=== PATIENT | female | born 1995 | race Caucasian/White ===

== ENCOUNTER 2024-09-13 06:38 | Emergency (ER) | payer MEDICAID ==
[~2024-09-13] VITALS: Ht 170.2 cm; Wt 59.0 kg
[2024-09-13 06:54] VITALS: O2SAT 100
[2024-09-13 08:55] LABS: CLARITY URINE CLEAR (CLEAR); COLOR URINE YELLOW (YELLOW); GLUCOSE URINE NEGATIVE (NEGATIVE); KETONES URINE NEGATIVE (NEGATIVE); LEUKOCYTE ESTERASE URINE NEGATIVE (NEGATIVE); NITRITE URINE NEGATIVE (NEGATIVE); OCCULT BLOOD URINE NEGATIVE (NEGATIVE); PROTEIN URINE NEGATIVE (NEGATIVE); UROBILINOGEN URINE 0.2 E.U./dL (0.2-1.0)
[2024-09-13 09:47] LABS: BASOPHILS % 0.2 % (0.0-2.0); EOSINOPHILS % 0.4 % (0.0-5.0); HEMATOCRIT. 44.3 % (36.0-48.0); HEMOGLOBIN. 14.7 g/dL (12.0-16.0); LYMPHOCYTES % 18.5 % (20.0-50.0); MEAN CORPUSCULAR HEMOGLOBIN 29.7 pg (28.0-32.0); MEAN CORPUSCULAR HGB CONC 33.2 g/dL (31.0-37.0); MEAN CORPUSCULAR VOLUME 89.2 fL (81.0-99.0); NEUTROPHILS % 71.9 % (40.0-76.0); PLATELET 218 x1000/uL (130-400); RED BLOOD CELL COUNT 4.96 mill/uL (4.2-5.4); RED CELL DISTRIBUTION WIDTH 13.7 % (11.6-14.6); WHITE BLOOD COUNT 6.4 x1000/uL (4.5-11.0)
[2024-09-13 09:48] LABS: CHLORIDE 108 mEq/L (98-107); POTASSIUM 3.9 mEq/L (3.5-5.1); SODIUM 140 mEq/L (136-145)
[2024-09-13 09:49] LABS: CALCIUM 9.8 mg/dL (8.7-10.4); CARBON DIOXIDE 28 mEq/L (21-32)
[2024-09-13 09:54] LABS: CREATININE 0.9 mg/dL (0.6-1.0); GLUCOSE 102 mg/dL (70-105); PROTHROMBIN TIME 11.6 sec (9.6-11.0); UREA NITROGEN BLOOD 10 mg/dL (9-23)
[2024-09-13 09:56] LABS: ALANINE AMINOTRANSFERASE 8 IU/L (10-49); ALBUMIN 4.7 g/dL (3.2-4.8); ASPARTATE AMINOTRANSFERASE 16 IU/L (<34); BILIRUBIN DIRECT 0.1 mg/dL (<=3.0); PHOSPHORUS 2.8 mg/dL (2.5-4.9)
[2024-09-13 09:57] LABS: BILIRUBIN TOTAL 0.5 mg/dL (0.1-1.0); PROTEIN TOTAL 7.9 g/dL (6.0-8.3)
[2024-09-13 09:58] LABS: T4 FREE 1.15 ng/dL (0.89-1.76); THYROID STIMULATING HORMONE 2.18 uIU/mL (0.55-4.78)
[2024-09-13 10:34] VITALS: BP 116/74; PULSE 74; RESP 16; TEMP 37.05852; O2SAT 99
== END 2024-09-13 10:35 | disposition home or self-care (01) ==
LOC: ER 06:38
DX: R00.2 Palpitations (principal)
CPT/HCPCS: 36415; 71045; 80048; 80076; 81003; 83735; 84100; 84439; 84443; 85025; 93005; 99285

== ENCOUNTER 2024-09-18 20:47 | Emergency (ER) | payer MEDICAID ==
[~2024-09-18] VITALS: Ht 167.6 cm; Wt 61.0 kg
[2024-09-18 21:07] VITALS: O2SAT 99
[2024-09-18 21:37] VITALS: BP 124/74; PULSE 81; RESP 20; TEMP 98.2; O2SAT 97
== END 2024-09-18 23:00 | disposition left against medical advice (07) ==
LOC: ER 20:47
DX: R52 Pain, unspecified (principal); Z53.21 Procedure and treatment not carried out due to patient leaving prior to being seen by health care provider

== ENCOUNTER 2024-09-29 13:26 | Emergency (ER) | payer MEDICAID ==
[~2024-09-29] VITALS: Ht 167.6 cm; Wt 60.0 kg
[2024-09-29 13:32] VITALS: O2SAT 96
[2024-09-29 14:28] LABS: CHLORIDE 106 mEq/L (98-107); POTASSIUM 3.4 mEq/L (3.5-5.1); SODIUM 140 mEq/L (136-145)
[2024-09-29 14:29] LABS: CALCIUM 10.1 mg/dL (8.7-10.4); CARBON DIOXIDE 22 mEq/L (21-32)
[2024-09-29 14:34] LABS: BASOPHILS % 0.3 % (0.0-2.0); CREATININE 0.9 mg/dL (0.6-1.0); EOSINOPHILS % 0.8 % (0.0-5.0); GLUCOSE 109 mg/dL (70-105); HEMATOCRIT. 46.2 % (36.0-48.0); HEMOGLOBIN. 15.3 g/dL (12.0-16.0); LYMPHOCYTES % 44.8 % (20.0-50.0); MEAN CORPUSCULAR HEMOGLOBIN 29.2 pg (28.0-32.0); MEAN CORPUSCULAR VOLUME 88.5 fL (81.0-99.0); MONOCYTES % 10.3 % (2.0-8.0); NEUTROPHILS % 43.8 % (40.0-76.0); PLATELET 204 x1000/uL (130-400); RED BLOOD CELL COUNT 5.23 mill/uL (4.2-5.4); RED CELL DISTRIBUTION WIDTH 13.6 % (11.6-14.6); UREA NITROGEN BLOOD 10 mg/dL (9-23); WHITE BLOOD COUNT 5.8 x1000/uL (4.5-11.0)
[2024-09-29 14:36] LABS: TROPONIN I HIGH SENSITIVITY < 4 ng/L (3.0-34)
[2024-09-29 16:08] VITALS: BP 118/76; PULSE 70; RESP 16; TEMP 36.72516; O2SAT 96
== END 2024-09-29 16:04 | disposition home or self-care (01) ==
LOC: ER 13:44
DX: R00.2 Palpitations (principal); R07.9 Chest pain, unspecified
CPT/HCPCS: 36415; 71045; 80048; 84484; 85025; 85379; 93005; 99285